=== PATIENT | male | born 1945 | race Caucasian/White ===

== ENCOUNTER 2016-12-13 10:48 | Day surgery (SDC) | payer MEDICARE, OTHER ==
[~2016-12-13] VITALS: Ht 170.2 cm; Wt 75.5 kg
[~2016-12-13 10:48] MED LIST: ACETAMINOPHEN 500 MG TAB (TYLENOL) PO PRN; ALLO300T2 PO; CHONDROITIN/HYALURONATE (DISCOVISC) 1 ML SYR IO ONE; NIAC500T24 PO; PHENYLEPHRINE/KETOROLAC 4 ML VIAL IO ONE; SODIUM CHLORIDE FLUSH 3 ML SYR IV PRN; TETRACAINE 0.5% OPHTHALMIC SOLUTION 4 ML BTL ONE; diphenhydrAMINE 50 MG/ML INJ (BENADRYL) IV PRN
--- OUTSIDE RECORDS SUMMARY | 2016-12-13 10:52 | XMS REPORT | Continuity Of Care Document ---
Author Author [facility] Organization [facility] Address [address] [place] [address] Phone Care Team Providers Care [employer] Name Role Phone LINDEN Karena LAST PP [phone] Gustabo COOK MD AT [phone] Results Results No results recorded. Allergies and Adverse Reactions Allergies and Adverse Reactions Patient Unit Number: [id number] Agent Type Reaction Severity Status NO KNOWN ALLERGIES Drug Allergy Unknown Unknown Active Problem List Problem List Visit/Account #[id number] (May 20, 2016 5:35am - May 20, 2016 5:35am) Chronic Problems: Code/Condition Comments Documented Start Date Documented Resolved Date Code (s) Carpal tunnel syndrome on both sides ICD10: G56.01 Bilateral carpal tunnel syndrome ICD9: 354.0 Bilateral carpal tunnel syndrome SNOMED: 73941014 Bilateral carpal tunnel syndrome Resolved Problems: Status post carpal tunnel release May 20, 2016 ICD10: Z98.89 Status post carpal tunnel release ICD9: V45.89 Status post carpal tunnel release SNOMED: 439020801 Status post carpal tunnel release Plan of Care Plan Of Care Visit/Account #[id number] (May 20, 2016 5:35am - May 20, 2016 5:35am) Patient Instructions Instructions [facility] DISCHARGE To help guide you through your recovery, your doctor has made the following suggestions: * Do not take or discontinue any medications (prescription or [id number]) except on the advice of the physician or pharmacist. - Finish all the antibiotic as directed - Tylenol (Acetaminophen) can be taken as directed for mild pain - Some prescribed pain medicines contain Tylenol (Acetaminophen). Please check with your nurse or pharmacist before taking both at the same time. - Prescribed pain medication may cause constipation. Increase your intake of fluids and fiber to prevent constipation. * You may have received anesthesia/sedation during your procedure. Please follow the recommendations below based on the type of anesthesia you received. If you were given Local Anesthesia: - Do not mix alcohol and pain medications - Continue taking your regular medications unless directed otherwise - Return to your regular activities as tolerated - Continue your normal diet If you were given Sedation Anesthesia: - You have been given medicine that may slow your reflexes and alter your memory for 24 hours - Go home and rest - Do not drive or operate machinery - Do not sign legal papers - Do not take medications that you do not normally take unless directed by doctor If you were given a Regional Block: - You have had medicine that numbs your arm or your leg. Protect your numb body part until full movement and feeling has returned, usually within 24 hours. Protect your arm or leg from heat, cold, and injury. DI for Carpal Tunnel Release Vital Signs Vital Signs Visit/Account #[id number] (May 20, 2016 5:35am - May 20, 2016 5:35am) Sign First Result Last Result Code(s) Temperature in Fahrenheit Temperature (Fahrenheit): 97.2 [degF] On May 20, 2016 6:06am 8310-5 Body Temperature Functional Status Functional and Cognitive Status No Functional Status Data Medications Home Medications - Medications that the patient was taking prior to arrival at the hospital Visit/Account #[id number] (May 20, 2016 5:35am - May 20, 2016 5:35am) Medication Route Sig/Schedule Precondition/Indication Comments/ Instructions Codes ZYLOPRIM(ALLOPURINOL) 300 MG TABLET Dose: 300 MG ORAL DAILY Allopurinol 300 MG Oral Tablet [Zyloprim] (RxNorm): 616513 ZYLOPRIM (ALLOPURINOL) ND: [id number] VITAMIN D3(CHOLECALCIFEROL (VITAMIN D3)) 4000 UNIT CAPSULE Dose: 4000 UNIT ORAL DAILY VITAMIN D3 (CHOLECALCIFEROL (VITAMIN D3)) ND: 80001110059 Inpatient/Ordered Medications - Medications administered during hospital visit Visit/Account #[id number] (May 20, 2016 5:35am - May 20, 2016 5:35am) Medication Route Sig/Schedule Precondition/Indication Comments/ Instructions Codes IV Medication Carriers: LR(LACTATED RINGER'S) 1000 ML INJECTION Dose: 1000 ML INTRAVEN .Q8H (Rate: 125 MLS/HR Duration: 8 HR) Carriers: Calcium Chloride 0.0014 MEQ/ML / Potassium Chloride 0.004 MEQ/ML / Sodium Chloride 0.103 MEQ (RxNorm): 029502 LR (LACTATED RINGER'S) NDC: [id number] IV Medication Carriers: ANCEF 2 GM/50 ML(CEFAZOLIN SODIUM/NORMAL SALINE) 2 GM/50 ML INJECTION Dose: 50 ML INTRAVEN YANIQUE (Rate: 100 MLS/HR Duration: 30 MIN) Clinical Indication: ABX Preop Prophylaxis Label Comments: REFRIGERATE * PROTECT FROM LIGHT * ANCEF=KEFZOL Expires 24 HRS after dispensed XYLOCAINE-MPF 1% INJ(LIDOCAINE HCL/PF) 20 MG/2 ML INJECTION Dose: 0.1 ML INTRADERM NEEDED Label Comments: For peripheral line insertion site. XYLOCAINE-MPF 1% INJ (LIDOCAINE HCL/PF) NDC: 88970778568 MARCAINE 0.5% INJ(BUPIVACAINE 0.5%) 50 ML INJECTION Dose: 50 ML Route .[facility] Bupivacaine Hydrochloride 5 MG/ML Injectable Solution [Marcaine] (RxNorm): 3243440 MARCAINE 0.5% INJ (BUPIVACAINE 0.5%) NDC: 59355408436 ZOFRAN INJ(ONDANSETRON HCL) 4 MG/2 ML INJECTION Dose: 2 ML INTRAVEN .PSCU.YANIQUE 2 ML Ondansetron 2 MG/ML Injection (RxNorm): 4950773 ZOFRAN INJ (ONDANSETRON HCL) NDC: 16676739731 VERSED INJ(MIDAZOLAM HCL) 2 MG/2 ML INJECTION Dose: 2 ML INTRAVEN .PSCU.YANIQUE 2 ML Midazolam 1 MG/ML Injection (RxNorm): 3518472 VERSED INJ (MIDAZOLAM HCL) NDC: 50474229889 Discharge Medications - Medications that patient should continue to take. Review with physician Visit/Account #[id number] (May 20, 2016 5:35am - May 20, 2016 5:35am) Medication Route Sig/Schedule Precondition/Indication Comments/ Instructions Codes ZYLOPRIM(ALLOPURINOL) 300 MG TABLET Dose: 300 MG ORAL DAILY Allopurinol 300 MG Oral Tablet [Zyloprim] (RxNorm): 694268 ZYLOPRIM (ALLOPURINOL) NDC: 70349665362 VITAMIN D3(CHOLECALCIFEROL (VITAMIN D3)) 4000 UNIT CAPSULE Dose: 4000 UNIT ORAL DAILY VITAMIN D3 (CHOLECALCIFEROL (VITAMIN D3)) NDC: 83809062122 NORCO 7.5-325 TABLET(HYDROcodone BIT/ACETAMINOPHEN) 1 TAB TABLET Dose: 1 TAB ORAL Q6S PRN Acetaminophen 325 MG / Hydrocodone Bitartrate 7.5 MG Oral Tablet (RxNorm): 810289 NORCO 7.5-325 TABLET (HYDROcodone BIT/ACETAMINOPHEN) NDC: 42332653670 KEFLEX(CEPHALEXIN MONOHYDRATE) 500 MG CAPSULE Dose: 500 MG ORAL 4 TIMES DAILY Cephalexin 500 MG Oral Capsule [Keflex] (RxNorm): 013431 KEFLEX (CEPHALEXIN MONOHYDRATE) NDC: 16814974378 History Of Encounters Encounters Visit/Account #[id number] (May 20, 2016 5:35am - May 20, 2016 5:35am) Account Status Physican Of Record Reason For Visit Visit Diagnosis Start Date/Time Stop Date/Time [facility] [place] KARYN COOK MD R CARPAL TUNNEL SYNDROME G56.01: CARPAL TUNNEL SYNDROME, RIGHT UPPER LIMB ICD10 May 20, 2016 5:35am May 20, 2016 5:35am Fei KARYN COOK MD R CARPAL TUNNEL SYNDROME G56.01: CARPAL TUNNEL SYNDROME, RIGHT UPPER LIMB ICD10 May 20, 2016 5:59am May 20, 2016 9:18am History of Procedures Procedure List No procedures recorded. Discharge Instructions Discharge Instructions Visit/Account #[id number] (May 20, 2016 5:35am - May 20, 2016 5:35am) DISCHARGE INSTRUCTIONS Physician Documentation PROVIDER INSTRUCTIONS Discharge Diet As Tolerated Discharge Activity/Weight Bearing Status avoid hitting palm of hand on sufraces, keep hand elevated and fingers moving to prevent swelling Other Discharge Instructions take antibiotic as directed start today Discharge Diet As Tolerated Discharge Activity/Weight Bearing Status avoid hitting palm of hand on sufraces, keep hand elevated and fingers moving to prevent swelling Other Discharge Instructions take antibiotic as directed start today WOUND/INCISION/CATHETER CARE Incision/Wound Care Clean the sutures after taking a shower using spray peroxide + Q-tips and rubbing alcohol. start dressing changes tomorrow, wear splint after first dressing change. Start showering hand on Tuesday Then apply NormlGel directly over the sutures and reapply the dressing. Do not seal off the incision completely, it needs to air out. You do not need to redress the wound after the sutures are out. REASON TO CALL PROVIDER Notify Physician if: Fever over 101, excessive swelling or pain not relieved by pain medications, excessive bleeding, redness or signs of inflamation in hand FOLLOW UP APPOINTMENTS Follow Up Appointment Date/Time: Dr. Cook May 31Tuesday at 2:45pm Social History Social History No Social History Data. Immunizations Immunizations Patient Unit Number: [id number] Immunizations No immunizations recorded.
[2016-12-13 11:31] VITALS: BP 171/106
[2016-12-13] MEDS ORDERED: CHOL200018 PO (11:55)
[2016-12-13] MEDS: LIDOCAINE 3.5% OPHTH GEL (AKTEN) 1 ML BTL OD SCH ×4 (12:08→12:40)
[2016-12-13] MEDS: HOME MEDICATION OD SCH ×3 (12:21→12:40)
[2016-12-13] MEDS: CATARACT PRE-OP EYE DROPS 0.5ML SYRINGE OD SCH ×4 (12:21→13:17)
[2016-12-13] MEDS ORDERED: MIDAZOLAM 2 MG/2 ML (VERSED) VIAL ONE (14:26)
[2016-12-13] MEDS ORDERED: ALFENTANIL 1,000 MCG/2 ML AMP IV ONE (14:38)
[2016-12-13 15:09] VITALS: BP 149/95
== END 2016-12-13 15:32 | disposition home or self-care (01) ==
LOC: ASC 10:48
PROVIDERS: ATTEND Ophthalmology
DX: H25.11 Age-related nuclear cataract, right eye (principal); M10.9 Gout, unspecified; I10 Essential (primary) hypertension; K21.9 Gastro-esophageal reflux disease without esophagitis
CPT/HCPCS: 66984; A9270; C9447; J2250; V2632